=== PATIENT | male | born 1970 | race African-American/Black ===

== ENCOUNTER 2023-01-03 22:28 | Emergency (ER) | payer OTHER, SELFPAY ==
--- NOTE | ~2023-01-03 | CT_ITS ---
EXAMINATION: CT abdomen pelvis w con DATE: 01/03/2023 23:29 INDICATION: Left lower quadrant abdominal pain and left flank pain. TECHNIQUE: Computed tomography (CT) of the abdomen and pelvis was performed with 100 mL Omnipaque-350 intravenous contrast. Automated exposure control and iterative reconstruction technique were employe d. The dose-length product was 687.07 mGy-cm. COMPARISON: None FINDINGS: Mild dependent atelectasis in the bilateral lower lobes. Heart size is normal. No pericardial or pleu ral effusion. Mild diffuse hepatic steatosis with more focal fat along the ligamentum teres. Gallblad pearl, spleen, pancreas, bilateral adrenal glands and kidneys are normal. Mild scattered diverticulosis without adjacent inflammatory change to suggest diverticulitis. Small bowel and appendix are normal. Prominent distention of the bladder which measures 17.3 x 9.4 x 13.2 cm. Mild prostatomegaly measuri ng 3.9 x 3.6 cm . Small bilateral fat-containing inguinal hernias. No free intraperitoneal gas or flu id. No pathologically enlarged abdominal or pelvic lymphadenopathy. Mild scattered degenerative skele astrid changes in the visualized spine and pelvis. Bridging osteophytes along the anterior aspect of the bilateral sacroiliac joints. IMPRESSION: 1. Diverticulosis. 2. Prominent distention of the bladder with only mild prostatomegaly. Correlate clinically for findin gs of bladder outlet obstruction. 3. Diffuse hepatic steatosis. 4. Small bilateral fat-containing inguinal hernias. Reviewed, dictated and finalized at location A. IMPRESSION: 1. Diverticulosis. 2. Prominent distention of the bladder with only mild prostatomegaly. Correlate clinically for findings of bladder outlet obstruction. 3. Diffuse hepatic steatosis. 4. Small bilateral fat-containing inguinal hernias.
[2023-01-03 22:31] VITALS: BP 154/107; PULSE 89; RESP 16; TEMP 37.2; O2SAT 99
[2023-01-03 22:41] VITALS: BP 148/99; PULSE 87; RESP 13; O2SAT 96
--- NOTE | 2023-01-03 22:43 | ED.GENADULT ---
HPI - General Adult General Chief complaint: Abdominal Pain Stated complaint: abdominal pain/back pain Time Seen by Provider: 01/03/23 22:37 History of Present Illness HPI narrative: Patient is a 50-year-old male here for evaluation of left flank pain over the past day. Patient states that he woke up with a soreness in that area that was intermittent at first but over the past day it has become more frequent and severe in nature. He now is noticing a pain in his left upper and left lower quadrant. He reports he has had a history of previous similar sensation but has never had this worked up in the past. He denies any rashes, fevers or chills, nausea or vomiting, diarrhea or constipation, dysuria, hematuria or other symptoms. He is not taking any medicine for his pain. Denies any past medical history. Related Data Allergies Allergy/AdvReac Type Severity Reaction Status Date / Time No Known Allergies Allergy Unknown Verified 04/08/16 18:44 Review of Systems Review of Systems: Gen.: Denies fevers or chills Eyes: Denies eye pain or visual change ENT: Denies congestion Respiratory: Denies shortness of breath or cough CV: Denies chest pain or palpitations GI: Reports left-sided abdominal pain. denies burning, urgency, frequency or hematuria Musculoskeletal: Reports left-sided back pain Neuro: Denies numbness, tingling, weakness or focal weakness Skin: Denies rash Except as documented, all other systems reviewed and negative Exam Narrative: APPEARANCE: Well appearing, no pain in distress, well-nourished. Head: Normocephalic and atraumatic. EYES: PERRLA/EOMI, conjunctivae clear NOSE: No nasal drainage EARS: External ear normal in appearance THROAT: Oropharynx is clear. Mucous membranes are moist. NECK: Supple. No adenopathy, no masses. RESPIRATORY: Airway patent, respirations nonlabored. Clear to auscultation bilaterally, no rales, rhonchi, wheezing. CARDIOVASCULAR: Regular rate and rhythm without murmurs, rubs, or gallops. ABDOMINAL: Slight tenderness to palpation in the left upper quadrant. Normoactive bowel sounds. Soft, nondistended. No rebound tenderness or guarding. MUSCULOSKELETAL: Extremities are warm and well-perfused. Moves all extremities well. No edema. NEURO: Normal speech. No focal neurologic deficits. SKIN: No rashes or redness to flank. Skin is warm and dry. No rashes. PSYCHIATRIC: Normal affect/mood.. Course Vital Signs Vital signs: Vital Signs Temperature 99.0 F 01/03/23 22:31 Pulse Rate 89 01/03/23 22:31 Respiratory Rate 16 01/03/23 22:31 Blood Pressure 154/107 H 01/03/23 22:31 Pulse Oximetry 99 01/03/23 22:31 Oxygen Delivery Room Air 01/03/23 22:31 Temperature 99.0 F 01/03/23 22:31 Pulse Rate 75 01/04/23 01:05 Respiratory Rate 21 H 01/04/23 01:05 Blood Pressure 136/88 01/04/23 01:05 Pulse Oximetry 96 01/04/23 01:05 Oxygen Delivery Room Air 01/03/23 22:31 Medical Decision Making MDM Narrative Medical decision making narrative: 52-year-old male here for evaluation of left-sided back pain that wraps around to the front of his abdomen with no other symptoms. He is nontoxic in appearance and does have some slight tenderness to palpation of the left upper quadrant. Differentials include diverticulitis, kidney stone, pyelonephritis, MSK sprain or strain. No rash to suggest shingles. Will give pain medicine, Lidoderm patch, obtain labs UA and imaging. 0000: Patient reassessed, feeling better after pain meds; able to leave urine sample at this time, aware we are waiting on images 0103: [facility] without any acute abnormalities. Patient's bladder is distended but this was prior to him urinating, patient states he did urinate a large amount afterwards and was holding his urine. UA negative. No signs or symptoms of bladder outlet obstruction. Labs unremarkable. Likely MSK sprain. We will send home with return precautions and PMD follow-up. Vital Signs Vital Sig
[2023-01-03 22:46] VITALS: BP 139/94; PULSE 82; RESP 19; O2SAT 93
[2023-01-03 22:58] LABS: Basophils Percent Auto 0.3 % (0.2-1.2); Eosinophils Absolute Auto 0.1 K/mm3 (0-0.3); Eosinophils Percent Auto 1.1 % (0-4.4); Hematocrit 39.8 % (42.0-52.0); Hemoglobin 13.6 g/dL (14.0-18.0); Immature Granulocyte Absolute 0.02 K/mm3 (0.00-0.031); Immature Granulocyte Percent A 0.3 % (0-0.5); Lymphocytes Absolute Auto 2.41 K/mm3 (0.9-3.2); Lymphocytes Percent Auto 36.8 % (18.3-44.2); Mean Corpuscular HGB Conc 34.2 g/dl (32-36); Mean Corpuscular Hemoglobin 31.7 pg (26-34); Mean Corpuscular Volume 92.8 fl (80-100); Mean Platelet Volume 8.4 fl (7.4-10.4); Monocytes Absolute Auto 0.6 K/mm3 (0.1-0.6); Neutrophils Absolute Auto 3.4 K/mm3 (1.3-6.7); Neutrophils Percent Auto 52.5 % (45.5-73.1); Platelet Count Result 253 k/mm3 (150-375); Red Blood Count 4.29 M/mm3 (4.6-6.20); White Blood Count 6.6 K/mm3 (4.5-10.0)
[2023-01-03 23:01] VITALS: BP 134/89; PULSE 78; RESP 18; O2SAT 95
[2023-01-03] MEDS: LIDOCAINE 5% PATCH 1 PATCH TRANSDERM (23:08)
[2023-01-03 23:11] LABS: Alanine Aminotransferase 29 U/L (6-50); Albumin Level 4.7 g/dL (3.5-5.1); Alkaline Phosphatase 59 U/L (38-126); Anion Gap 8 mmol/L (8-16); Aspartate Amino Transferase 42 U/L (17-59); Bilirubin,Total 0.7 mg/dL (0.2-1.3); Blood Urea Nitrogen 8 mg/dL (9-20); Calcium 8.3 mg/dL (8.4-10.2); Carbon Dioxide 26 mmol/L (22-30); Chloride 103 mmol/L (98-107); Estimated CRCL calculation 87 ml/min; Estimated Glomerular Filt Rate > 60; Glucose 107 mg/dL (65-110); Lipase 137 U/L (23-300); Potassium 3.1 mmol/L (3.4-5.0); Sodium 137 mmol/L (137-145)
[2023-01-03 23:16] VITALS: BP 136/90; PULSE 78; RESP 19; O2SAT 94
[2023-01-04 00:32] LABS: Appearance Urine Clear (Clear); Bilirubin Urine Negative (Negative); Blood Urine Negative (Negative); Color Urine Yellow (Yellow); Glucose Urine UA Negative (Negative); Ketones Urine Negative (Negative); Leukocyte Esterase Ur Negative LEU/UL (Negative); Nitrate Urine Negative (Negative); Protein Urine Negative (Negative); Urobilinogen Urine 0.2 mg/dL (<2.0); pH Urine 6.5 (5.0-9.0)
[2023-01-04 00:52] LABS: Add Urine Microscopic? NO
[2023-01-04 01:05] VITALS: BP 136/88; PULSE 75; RESP 21; O2SAT 96
== END 2023-01-04 01:05 | disposition home or self-care (01) ==
PROVIDERS: Emergency Provider Physician Assistant
DX: S33.5XXA Sprain of ligaments of lumbar spine, initial encounter (principal); X58.XXXA Exposure to other specified factors, initial encounter
CPT/HCPCS: 36415; 74177; 80053; 81003; 83690; 85025; 96374; 99284; A9270; J0131; Q9967

== ENCOUNTER 2023-03-25 08:01 | Emergency (ER) | payer OTHER, SELFPAY ==
--- NOTE | ~2023-03-25 | CT_ITS ---
EXAMINATION: CT abdomen pelvis wo con DATE: 03/25/2023 09:27 INDICATION: Left flank pain TECHNIQUE: Computed tomography (CT) of the abdomen and pelvis was performed without intravenous contr ast. Automated exposure control and iterative reconstruction technique were employed. The dose-length product was 738.03 mGy-cm. COMPARISON: 01/03/2023 FINDINGS: Mild dependent atelectasis in the left lower lobe. Heart size is normal. No pericardial or pleural ef fusion. Diffuse hepatic steatosis. Gallbladder, spleen and adjacent small splenule, pancreas and bila teral adrenal glands are normal. Kidneys and ureters are normal with no urolithiasis, hydroureteronep hrosis or perinephric/ureteral stranding. Again seen is prominent distention of the bladder which zi sures 15.9 x 8.8 x 12.9 cm. Unremarkable prostate measuring 3.6 x 3.1 cm. There are few scattered col onic diverticula without adjacent inflammatory stranding to suggest diverticulitis. Small bowel and a ppendix are normal. No free intraperitoneal gas or fluid. No pathologically enlarged abdominal or pel stefanie lymphadenopathy. Small bilateral fat-containing inguinal hernias. Mild scattered degenerative ske letal changes. IMPRESSION: 1. Persistent prominent distention of the bladder. No urolithiasis or other acute intra-abdominal/pel stefanie process. 2. Diffuse hepatic steatosis. 3. Mild diverticulosis. Reviewed, dictated and finalized at location B. IMPRESSION: 1. Persistent prominent distention of the bladder. No urolithiasis or other acu te intra-abdominal/pelvic process. 2. Diffuse hepatic steatosis. 3. Mild diverticulosis.
[2023-03-25 08:08] VITALS: BP 174/97; PULSE 69; RESP 16; TEMP 36.4; O2SAT 98
[2023-03-25 08:29] LABS: Appearance Urine Clear (Clear); Bilirubin Urine Negative (Negative); Blood Urine Negative (Negative); Color Urine Yellow (Yellow); Glucose Urine UA Negative (Negative); Ketones Urine Negative (Negative); Leukocyte Esterase Ur Negative LEU/UL (Negative); Nitrate Urine Negative (Negative); Protein Urine Negative (Negative); Specific Grav Ur 1.008 (1.001-1.035); Urobilinogen Urine 0.2 mg/dL (<2.0)
[2023-03-25 08:38] LABS: Add Urine Microscopic? NO
--- NOTE | 2023-03-25 09:19 | ED.ABDPAIN ---
HPI - Abdominal Pain General Chief Complaint: Abdominal Pain Stated Complaint: left flank pain Time Seen by Provider: 03/25/23 08:53 Source: patient Mode of arrival: ambulatory Limitations: no limitations History of Present Illness HPI narrative: This is a 52-year-old male who presents to the ED with chief complaint of left flank pain radiating into the left abdomen for 2 days. Denies any trauma or injury. States that the pain just started while he was sitting on the couch. Reports a 10 out of 10 pain. Denies any right-sided pain. States it is hard to find a comfortable position. He states is worse in certain positions, especially when he lays directly on the side. Denies fevers, chills, vomiting, nausea, diarrhea, urinary symptoms, chest pain, shortness of breath, cough. Denies any medical or abdominal surgical history. Related Data Allergies Allergy/AdvReac Type Severity Reaction Status Date / Time No Known Allergies Allergy Unknown Verified 03/25/23 08:07 Review of Systems Review of Systems: CONSTITUTIONAL: Denies fever, chills, or sweats. EYES: Denies visual changes, redness, or discharge. ENT: Denies rhinorrhea, congestion, sore throat, or otalgia. CARDIOVASCULAR: Denies chest pain, palpitations, or edema. RESPIRATORY: Denies cough or dyspnea. GASTROINTESTINAL: See HPI GENITOURINARY: Denies dysuria or hematuria. SKIN: Denies rash or itching. MUSCULOSKELETAL: Denies back pain, joint pain, or myalgia. NEUROLOGIC: Denies headache, numbness, dizziness, or weakness. PSYCHIATRIC: Denies anxiety or depression. Exam Narrative: GENERAL: Well-appearing, well-nourished, and in no acute distress. HEAD: Normocephalic, atraumatic. EYES: PERRLA and EOMI. ENT: Nares clear, no rhinorrhea or epistaxis. Mucous membranes moist. Oropharynx without tonsillar hypertrophy exudate or other lesions. NECK: Supple. No adenopathy or masses. CHEST: No respiratory distress. Clear to auscultation. No wheezes rales or rhonchi HEART: Regular rate and rhythm. No murmur heard. Normal peripheral pulses. ABDOMEN: Left flank tenderness is present. Negative right flank tenderness. Soft, otherwise nontender, nondistended, normal active bowel sounds. MSK: Normal range of motion. No edema. SKIN: Warm, dry, no rash. NEURO: Alert and oriented x3. No focal deficits. PSYCH: Normal mood and affect. Course Course Emergency Course: Reevaluation 1037: Feeling much better and like his pain is completely resolved. Vital Signs Vital signs: Vital Signs Temperature 97.5 F L 03/25/23 08:08 Pulse Rate 69 03/25/23 08:08 Respiratory Rate 16 03/25/23 08:08 Blood Pressure 174/97 H 03/25/23 08:08 Pulse Oximetry 98 03/25/23 08:08 Oxygen Delivery Room Air 03/25/23 08:08 Temperature 97.5 F L 03/25/23 08:08 Pulse Rate 68 03/25/23 10:48 Respiratory Rate 18 03/25/23 10:48 Blood Pressure 134/94 H 03/25/23 10:48 Pulse Oximetry 99 03/25/23 10:48 Oxygen Delivery Room Air 03/25/23 08:08 MDM - Abdominal Pain MDM Narrative Medical decision making narrative: This is a 52-year-old male who presents to the ED with chief complaint of left flank pain radiating into the left abdomen for the past few days. Vitals are stable. Exam does show some mild left flank tenderness. Abdomen is otherwise benign. His pain was controlled with Dilaudid. Lab work including a UA is grossly unremarkable. CT scan does not show any evidence of stone or acute abdominal pathology. There is some constipation that is identified. His pain is certainly positional in nature and worse with certain movements. Differential of musculoskeletal flank pain versus constipation versus recently passed kidney stone. He was given prescription for Colace and told to use MiraLAX. Also given prescription for muscle relaxer. He is stable for discharge. Encouraged him to follow-up with PCP. Return precautions given. Supportive measures discussed. Patient is
[2023-03-25 09:31] LABS: Basophils Percent Auto 0.4 % (0.2-1.2); Eosinophils Absolute Auto 0.1 K/mm3 (0-0.3); Eosinophils Percent Auto 1.1 % (0-4.4); Hematocrit 43.4 % (42.0-52.0); Hemoglobin 14.7 g/dL (14.0-18.0); Immature Granulocyte Absolute 0.01 K/mm3 (0.00-0.031); Immature Granulocyte Percent A 0.1 % (0-0.5); Lymphocytes Absolute Auto 1.54 K/mm3 (0.9-3.2); Lymphocytes Percent Auto 21.8 % (18.3-44.2); Mean Corpuscular HGB Conc 33.9 g/dl (32-36); Mean Corpuscular Hemoglobin 31.9 pg (26-34); Mean Corpuscular Volume 94.1 fl (80-100); Mean Platelet Volume 9.2 fl (7.4-10.4); Monocytes Absolute Auto 0.6 K/mm3 (0.1-0.6); Monocytes Percent Auto 8.5 % (2.6-8.5); Neutrophils Absolute Auto 4.8 K/mm3 (1.3-6.7); Neutrophils Percent Auto 68.1 % (45.5-73.1); Platelet Count Result 294 k/mm3 (150-375); Red Blood Count 4.61 M/mm3 (4.6-6.20); White Blood Count 7.1 K/mm3 (4.5-10.0)
[2023-03-25] MEDS: HYDROmorphone HCL INJ (*CRX) 1 MG/ML SYR 0.5 MG IV PUSH (09:37)
[2023-03-25 09:38] VITALS: BP 165/99; PULSE 62; RESP 18; O2SAT 99
[2023-03-25 09:49] LABS: Alanine Aminotransferase 41 U/L (6-50); Albumin Level 4.4 g/dL (3.5-5.1); Alkaline Phosphatase 66 U/L (38-126); Anion Gap 7 mmol/L (8-16); Aspartate Amino Transferase 43 U/L (17-59); Bilirubin,Total 0.4 mg/dL (0.2-1.3); Blood Urea Nitrogen 9 mg/dL (9-20); Calcium 8.5 mg/dL (8.4-10.2); Carbon Dioxide 25 mmol/L (22-30); Chloride 107 mmol/L (98-107); Estimated Glomerular Filt Rate > 60; Glucose 99 mg/dL (65-110); Potassium 3.7 mmol/L (3.4-5.0); Sodium 139 mmol/L (137-145)
[2023-03-25 10:48] VITALS: BP 134/94; PULSE 68; RESP 18; O2SAT 99
== END 2023-03-25 10:50 | disposition home or self-care (01) ==
PROVIDERS: Emergency Medicine; Emergency Provider Physician Assistant
DX: K59.00 Constipation, unspecified (principal); R10.9 Unspecified abdominal pain; K76.0 Fatty (change of) liver, not elsewhere classified; K57.90 Diverticulosis of intestine, part unspecified, without perforation or abscess without bleeding; R93.41 Abnormal radiologic findings on diagnostic imaging of renal pelvis, ureter, or bladder
CPT/HCPCS: 36415; 74176; 80053; 81003; 85025; 96374; 99284; J1170